=== PATIENT | female | born 1925 | race Caucasian/White ===

== ENCOUNTER 2016-06-20 01:06 | Inpatient (IN) | payer OTHER ==
[~2016-06-20] VITALS: Ht 162.6 cm; Wt 81.8 kg
[~2016-06-20 01:06] MED LIST: ALPHAGAN P100 DROP/5 BOTH EYES; APIDRA SOL100 UNIT/1 SC; APRESOLINE25 MG PO; ASPIRIN81 M1 PO; CALCITRIOL0.25 MCG PO; CARVEDILOL12.5 MG PO; COSOPT EYE DROPS5 ML BOTH EYES; ERGOCALCIF50000 UNIT PO; FUROSEMIDE40 MG PO; LANTUS 3 M100 UNITS1 SC; LYRICA75 MG PO; NITROGLYCERIN0.4 MG SL; NOVOLIN,HU100 UNITS1 SC; OMEGA-3 FISH O1 EAC5 PO; PRILOSEC20 MG PO; TYLENOL REGULA325 MG PO; XALATAN2.5 ML BOTH EYES; ZYLOPRIM100 MG PO
[2016-06-20 02:17] LABS: HEMATOCRIT 32.5 % (36.0-46.0); MCH 28.3 PG (29.0-34.0); MCHC 30.5 G/DL (30.0-36.0); MCV 92.9 FL (83-99); MEAN PLAT.VOLUME 11.6 uM^3 (9.5-12.4); PLATELET COUNT 203 K/uL (156-360); RBC DIS.WIDTH-CV 14.5 % (11.8-14.6); RBC DIS.WIDTH-SD 47.1 % (39-53); WHITE BLOOD COUNT 9.8 K/uL (4.1-10.2)
[2016-06-20 02:19] LABS: CARBON DIOXIDE (BICARBONATE) 31.1 MEQ/L (20-31)
[2016-06-20 02:31] LABS: CHLORIDE 97 mEq/L (99-109); POTASSIUM 4.5 mEq/L (3.7-5.4); SODIUM 135 mEq/L (136-147)
[2016-06-20 02:33] LABS: GLUCOSE 164 mg/dL (70-99)
[2016-06-20 02:34] LABS: ANION GAP 12 MEQ/L (2-14)
[2016-06-20 02:35] LABS: TOTAL BILIRUBIN 0.5 mg/dL (0.0-1.0)
[2016-06-20 02:36] LABS: ALKALINE PHOSPHATASE 142 IU/L (3-129)
[2016-06-20 02:37] LABS: GFR ESTIMATE (CALCULATED) 16 mL/min/
[2016-06-20 02:38] LABS: UREA NITROGEN (BUN) 45 mg/dL (9-23)
[2016-06-20 02:38] LABS: ADD MIUA? YES; BILIRUBIN NEGATIVE; BLOOD SMALL; COLOR AMBER ((YELLOW)); GLUCOSE (STRIP) NEGATIVE; KETONES NEGATIVE; LEUKOCYTES LARGE; NITRITE NEGATIVE; PROTEIN (STRIP) 100; SPECIFIC GRAVITY 1.018 (1.000-1.030)
[2016-06-20 02:40] LABS: LIPASE 9 U/L (1.0-51.0)
[2016-06-20 02:42] LABS: TROP-I INTERPRETATION INDETERMINATE; TROPONIN-I 0.33 ng/mL (0.0-0.30)
[2016-06-20 02:45] LABS: BACTERIA 2+ /HPF; EPITHELIAL CELLS RARE /HPF; MUCUS TRACE /LPF; UCUL ADDED? YES; WHITE BLOOD CELLS TNTC /HPF (0-5); WHITE BLOOD CELLS CLUMP FEW /HPF (0-5)
[2016-06-20 08:01] LABS: INTER. NORMALIZED RATIO 1.1; PROTHROMBIN TIME 11.4 (9.2-11.2); PTT 34.5 (25-32)
[2016-06-20 09:19] LABS: TROP-I INTERPRETATION INDETERMINATE; TROPONIN-I 0.31 ng/mL (0.0-0.30)
[2016-06-20 09:35] LABS: Estimated Average Glucose 275 mg/dL (70-123); HEMOGLOBIN A1c (GLYCOHEMOGLOB) 11.2 % HGB (Below 5.7)
[2016-06-20 10:24] VITALS: BP 138/63
[2016-06-22 11:50] LABS: POINT-OF-CARE METER ID UU13113702
== END 2016-06-20 10:26 | disposition left against medical advice (07) | DRG 292 ==
LOC: EME 01:06 → EDOF 08:00
PROVIDERS: Emergency Medicine; Hospitalist
DX: I50.9 Heart failure, unspecified (principal); N39.0 Urinary tract infection, site not specified; E11.22 Type 2 diabetes mellitus with diabetic chronic kidney disease; E87.70 Fluid overload, unspecified; M25.561 Pain in right knee; E78.5 Hyperlipidemia, unspecified; H40.9 Unspecified glaucoma; I12.9 Hypertensive chronic kidney disease with stage 1 through stage 4 chronic kidney disease, or unspecified chronic kidney disease; N18.9 Chronic kidney disease, unspecified; H54.8 Legal blindness, as defined in USA; Z95.1 Presence of aortocoronary bypass graft; Z87.891 Personal history of nicotine dependence; Z79.4 Long term (current) use of insulin; Z91.81 History of falling
CPT/HCPCS: 71020; 72170; 73564; 80053; 81003; 82803; 82948; 83036; 83605; 83690; 83880; 84484; 85027; 85610; 85730; 87040; 87077; 87086; 87186; 93005; 99281; 99285; J0744; J1815; J1940